=== PATIENT | female | born 1955 | race American Indian/Alaskan Native ===

== ENCOUNTER 2019-02-13 09:17 | Outpatient (CLI) | payer MEDICARE ==
--- NOTE | 2019-02-13 10:48 | Fluoroscopy Report ---
BARIUM SWALLOW Indication: DYSPHAGIA/PHARYNGEAL PHASE R13.13. Technique: Single contrast barium technique utilized to evaluate the esophagus. FINDINGS: To begin the exam, swallowing was evaluated in the lateral position under direct fluorosco py. Swallowing was normal. No mucosal irregularity, mass, mass effect, or critical stenosis. There were no abnormal tertiary c ontractions as seen with dysmotility. No gastroesophageal reflux. A barium tablet pass through the es ophagus without difficulty. IMPRESSION: Unremarkable exam. Fluoroscopic time: 1.1 minutes Number of fluoroscopic images: 29 Signer Name: Cain Hou Jr, MD Signed: 02/13/2019 10:44 AM Workstation Name: [id number]
== END 2019-02-13 09:18 | disposition home or self-care (01) ==
LOC: FLUORO 09:17
PROVIDERS: ATTEND Internal Medicine Geriatric Medicine
DX: R13.13 Dysphagia, pharyngeal phase (principal); Z88.0 Allergy status to penicillin
CPT/HCPCS: 74220